=== PATIENT | male | born 1995 | race Caucasian/White ===

== ENCOUNTER 2020-09-26 15:27 | Outpatient (REF) | payer OTHER, SELFPAY | END 2020-09-26 15:28 | disposition home or self-care (01) | LOC: HO.LAB 15:27 | PROVIDERS: Visit Provider Internal Medicine | DX: Z20.822 Contact with and (suspected) exposure to COVID-19 (principal) | CPT/HCPCS: C9803; U0003; U0005 ==

== ENCOUNTER 2020-11-12 01:45 | Emergency (ER) | payer OTHER, SELFPAY ==
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
[2020-11-12 01:46] VITALS: BP 147/78; PULSE 98; RESP 16; O2SAT 100; BMI 28.0
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
[2020-11-12] MEDS: iohexoL 350 MG/ML 100 ML INFUS..BTL 85 ML IV (02:16)
[2020-11-12 02:30] VITALS: BP 118/71; PULSE 69; RESP 14; O2SAT 97
--- NOTE | 2020-11-12 02:40 | PC.NURSE ---
Patient placed on 1 LPM oxygen via nasal cannula. Pt is very anxious, intermittently hyperventilating. Per patient's girlfriend, patient has a history of asthma, and anxiety especially when he's in a hospital. He doesn't like hospitals . On room air, patient's saturation decreased to 88%. C-spine collar remains in place, laying supine. Labs being drawn at this time. Will continue to monitor.
[2020-11-12 02:58] LABS: MANUAL DIFF FLAG NO
[2020-11-12 02:59] LABS: Basophils Absolute Auto 0.1 X10*3/uL (0.0-0.2); Basophils Percent Auto 0.5 % (0-2); Eosinophils Absolute Auto 0.2 X10*3/uL (0.0-0.4); Eosinophils Percent Auto 1.8 % (0-4); Hemoglobin 14.5 g/dl (14.0-18.0); Imm Gran Abs Auto 0.03 X10*3/uL (0.00-0.03); Imm Gran Pct Auto 0.3 % (0.0-0.4); Lymphocytes Absolute Auto 3.2 X10*3/uL (1.2-4.9); Lymphocytes Percent Auto 28.9 % (20-40); Mean Corpuscular HGB Conc 34.5 g/dl (31.0-36.0); Mean Corpuscular Hemoglobin 29.5 pg (27.0-33.0); Mean Corpuscular Volume 85.4 fL (80-98); Mean Platelet Volume 10.5 fL (9.4-12.4); Monocytes Percent Auto 9.4 % (2-11); Neutrophils Absolute Auto 6.5 X10*3/uL (2.0-8.3); Neutrophils Percent Auto 59.1 % (45-73); Platelet Count 260 X10*3/uL (160-400); Red Blood Count 4.92 X10*6/uL (4.60-5.80); Red Cell Distribution Width 11.9 % (11.0-16.0)
[2020-11-12 03:05] LABS: INTERNATIONAL NORM RATIO 1.1 (0.9-1.1); Prothrombin Time 13.1 SEC (10.8-13.0)
[2020-11-12 03:24] LABS: Ethanol 42 mg/dL
[2020-11-12 03:29] LABS: Alanine Aminotransferase 27 U/L (0-40); Albumin Level 4.4 g/dL (3.5-5.0); Alkaline Phosphatase 92 U/L (39-117); Anion Gap 19 (12-20); Aspartate Amino Transferase 26 U/L (5-37); Bilirubin Total 0.6 mg/dL (0.0-1.0); Blood Urea Nitrogen 10 mg/dL (9-16); Calcium 9.3 mg/dL (8.4-10.2); Carbon Dioxide 19 mmol/L (22-29); Chloride 103 mmol/L (96-108); Creatinine Clr Calc Pharmacy 132.8; Estimated Glomerular Filt Rate > 60; Glucose Random 94 mg/dL (60-115); Potassium 3.6 mmol/L (3.3-5.1); Sodium 137 mmol/L (135-145); Total Protein 7.3 g/dL (6.5-8.0)
[2020-11-12 03:31] LABS: Alanine Aminotransferase 27 U/L (0-40); Albumin Level 4.4 g/dL (3.5-5.0); Alkaline Phosphatase 92 U/L (39-117); Anion Gap 17 (12-20); Aspartate Amino Transferase 26 U/L (5-37); Bilirubin Direct 0.3 mg/dL (0.0-0.5); Bilirubin Total 0.6 mg/dL (0.0-1.0); Blood Urea Nitrogen 10 mg/dL (9-16); Calcium 9.2 mg/dL (8.4-10.2); Carbon Dioxide 20 mmol/L (22-29); Chloride 103 mmol/L (96-108); Estimated Glomerular Filt Rate > 60; Glucose Random 94 mg/dL (60-115); Potassium 3.5 mmol/L (3.3-5.1); Sodium 136 mmol/L (135-145); Total Protein 7.2 g/dL (6.5-8.0)
== END 2020-11-12 04:33 | disposition home or self-care (01) ==
LOC: HO.ED 04:30
PROVIDERS: Emergency Provider Emergency Medicine Emergency Medical Services
DX: S06.0X9A Concussion with loss of consciousness of unspecified duration, initial encounter (principal); S70.02XA Contusion of left hip, initial encounter; V23.0XXA Motorcycle driver injured in collision with car, pick-up truck or van in nontraffic accident, initial encounter; Y93.89 Activity, other specified; Y92.414 Local residential or business street as the place of occurrence of the external cause; Y99.9 Unspecified external cause status
CPT/HCPCS: 36415; 70450; 71045; 71260; 72125; 72170; 74177; 80048; 80053; 80076; 82077; 82248; 85025; 85610; 99284; Q9967

== ENCOUNTER 2021-01-13 15:16 | Outpatient (REF) | payer OTHER, SELFPAY | END 2021-01-13 15:17 | disposition home or self-care (01) | LOC: HO.LAB 15:16 | PROVIDERS: Visit Provider Internal Medicine | DX: Z20.822 Contact with and (suspected) exposure to COVID-19 (principal) | CPT/HCPCS: C9803; U0003; U0005 ==

== ENCOUNTER 2021-12-11 18:34 | Emergency (ER) | payer OTHER, SELFPAY ==
[2021-12-11 21:55] VITALS: BP 110/68; PULSE 56; RESP 18; TEMP 36.8; O2SAT 96; BMI 26.7
--- NOTE | 2021-12-11 22:44 | ED.ANIMALBIT ---
HPI - Animal Bite General Chief Complaint: Animal Bite Stated Complaint: bite on back right leg Time Seen by Provider: 12/11/21 21:58 Source: patient Mode of arrival: ambulatory Limitations: no limitations History of Present Illness HPI narrative: 26-year-old male here with reports of swelling and redness the back of his right thigh noted yesterday with waking. Patient does when he woke up he felt a sharp pain on the back of his right thigh and brush his hand against it. When he looked down he noticed a small area of redness. When he woke up today he noticed that there was increasing redness and swelling to the area and so he went to [facility]. Patient tells me he was diagnosed with cellulitis from a insect bite and was given a prescription for doxycycline. He took 1 dose prior to arrival. He tells me he thought there was increased swelling and redness the area and he decided to come here to be re-evaluated. No fevers or chills Related Data Previous Rx's Medication Instructions Recorded ibuprofen 400 mg tablet 400 mg PO Q6H PRN pain #20 tabs 11/12/20 Allergies Allergy/AdvReac Type Severity Reaction Status Date / Time No Known Allergies Allergy Verified 12/11/21 21:55 [No Known Allergies*] Review of Systems Review of Systems: Yes all other systems are reviewed and are negative Constitutional: Constitutional: Reports no additional constitutional complaints, Denies body ache(s), Denies chills, Denies fever(s), Denies headache(s) and Denies weakness Eyes: Eyes: Reports no additional eye complaints and Denies change in vision ENT: Reports system reviewed and no additional complaints, except as documented, Denies dizziness, Denies headache(s), Denies nasal congestion, Denies nasal discharge and Denies neck pain Cardiovascular: Cardiovascular: Reports no additional cardiovascular complaints, Denies chest pain, Denies leg edema and Denies dyspnea Respiratory: Respiratory: Reports no additional respiratory complaints, Denies cough and Denies dyspnea Gastrointestinal: Gastrointestinal: Reports no additional gastrointestinal complaints, Denies abdominal pain, Denies diarrhea, Denies nausea and Denies vomiting Genitourinary: Genitourinary: Denies urinary incontinence Musculoskeletal: Musculoskeletal: Reports no additional musculoskeletal complaints, Denies back pain, Denies arthralgias, Denies joint swelling, Denies neck pain, Denies numbness and Denies tingling Integumentary/Breasts: Skin/Breast: Reports system reviewed and no additional complaints, except as docu, Reports swelling, Reports erythema and Reports rash Neurologic: Reports system reviewed and no additional complaints, except as documented, Denies dizziness, Denies headache(s), Denies numbness, Denies tingling and Denies weakness PMFSH Past Medical History Attestation statement: The following information was validated with the patient. Source: old records reviewed and nursing notes reviewed Medical History No active medical problems Social History Social History Advance Directives: No Advance Directives Information Provided: Yes Physical Exam ED Vital Signs: Vital Signs - 24 hr 12/11/21 21:55 Temperature 98.3 F Pulse Rate 56 Respiratory Rate 18 Blood Pressure 110/68 Pulse Oximetry 96 Oxygen Delivery Method Room Air BMI result Body Mass Index 26.7 Const General: cooperative, healthy appearing and comfortable Orientation/consciousness: patient oriented x3 Limitations: no limitations HENMT Head: Yes normal to inspection Ears: hearing grossly normal bilaterally Eyes General: appearance normal, both eyes and all related structures Pupils: Equal, round and reactive pupils present Neck Neck: Yes normal visual inspection Chest Chest palpation & inspection: normal inspection of the chest Resp Effort & Inspection: normal respiratory effort Auscultation: clear to auscultation bilaterally Cardio Rate: regular rate Rhythm: regular rhythm Peripheral pulses: Peripheral pulses 2+ throughout GI Inspection: Yes normal to inspection Skin Other: General skin exam: no rashes or lesions noted Neuro General: patient oriented x3 and moves all extremities Cranial nerves: Yes Equal, round and reactive pupils present MDM - Animal Bite MDM Narrative Medical decision making narrative: 26-year-old male with a local cellulitis in the posterior right thigh secondary to an insect bite. Patient was seen at a local hospital earlier today and given a prescription for doxycycline. Patient comes here today because he feels like the swelling and redness is worse although he has not picked up his antibiotic for doxycycline and started this. Local cellulitis on exam. Agree with prescription for doxycycline. There is some slight urticarial appearance of the rash in so patient can also take Benadryl. Overall nontoxic appearing. Afebrile Medical Records Attestation: I reviewed the patient's medical records. Lab Data Attestation: I reviewed the patient's lab results. Discharge Plan Discharge Clinical Impression: Insect bite, Cellulitis Patient Disposition: Home, Self-Care Instructions: Cellulitis (ED) Additional Instructions: Start the antibiotics that were prescribed to you by [facility] today Take Benadryl for itching and swelling as needed Prescriptions: No Action ibuprofen 400 mg tablet 400 mg PO Q6H PRN (Reason: pain) Qty: 20 0RF Referrals: Physician,Unknown J [Primary Care Provider] -
== END 2021-12-12 00:07 | disposition home or self-care (01) ==
PROVIDERS: Emergency Provider Internal Medicine
DX: L03.115 Cellulitis of right lower limb (principal)
CPT/HCPCS: 99282